=== PATIENT | male | born 1990 | race Two or more races ===

== ENCOUNTER 2018-06-30 16:49 | Emergency (ER) | payer SELFPAY ==
[2018-06-30] MEDS ORDERED: METOCLOPRAMIDE HCL INJ/PF 10 MG/2 ML SDV IV ONE (18:27)
[2018-06-30] MEDS ORDERED: NORMAL SALINE 1000 ML 1,000 ML IV ONE (18:27)
[2018-06-30] MEDS ORDERED: DICYCLOMINE HCL 20 MG TABLET PO ONE (18:27)
--- NOTE | 2018-06-30 18:30 | ER Document Report ---
ED Medical Screen (RME) - General Chief Complaint: Abdominal Pain Stated Complaint: ABDOMINAL PAIN Time Seen by Provider: 06/30/18 18:24 Notes: Patient is a 28-year-old male presents the emergency department for generalized left upper abdominal pain for the last 3 days. Patient states he has also had multiple episodes of diarrhea over the last 3 days and is nauseous. Patient is denying any vomiting, fever, URI symptoms. Patient states over the last couple of months he has had intermittent bright red blood in his stool states more so over the last couple of days. Past medical history: None Medications: None Allergies: None GENERAL: Alert, interacts well. No acute distress. ABDOMEN: Obese soft, Non-distended. Bowel sounds present in all 4 quadrants. Generalized left upper quadrant tenderness, no McBurney's point tenderness, no M urphy sign noted. I have greeted and performed a rapid initial assessment of this patient. A comprehensive ED assessment and evaluation of the patient, analysis of test results and completion of the medical decision making process will be conducted by additional ED providers. TRAVEL OUTSIDE OF THE [place] IN LAST 30 DAYS: No - Related Data Allergies/Adverse Reactions: No Known Allergies Allergy (Verified 06/30/18 18:23) Physical Exam - Vital signs Vitals: Temp Pulse Resp BP Pulse Ox 98.7 F 89 16 136/85 H 97 06/30/18 17:08 06/30/18 17:08 06/30/18 17:08 06/30/18 17:08 06/30/18 17:08 Course - Vital Signs Vital signs: Temp Pulse Resp BP Pulse Ox 98.7 F 89 16 136/85 H 97 06/30/18 17:08 06/30/18 17:08 06/30/18 17:08 06/30/18 17:08 06/30/18 17:08
[2018-06-30] MEDS ORDERED: SUCRALFATE 1 GM TABLET PO ONE (21:15)
[2018-06-30] MEDS ORDERED: HYDROCODONE/ACETAMINOPHEN 5-325 MG TABLET PO ONE (21:15)
[2018-06-30] MEDS ORDERED: PROMETHAZINE HCL 25 MG TABLET PO ONE (21:15)
--- NOTE | 2018-06-30 21:18 | ER Document Report ---
ED GI/ - General Chief Complaint: Abdominal Pain Stated Complaint: ABDOMINAL PAIN Time Seen by Provider: 06/30/18 18:24 Notes: Patient is a 28-year-old male that comes to the emergency department for chief complaint of left upper abdominal pain, he states he has had this for months but it has been worsening recently and has been worse over the past few days. He reports nausea but he has not vomited. He has had a few loose stools. He sta lj that he has had intermittent bloody stools and dark stools but he has not had any over these past 3 days. He denies any fever, flank pain, chest pain, other locations of pain. He takes bkwe-yev-khsvyho medication such as ibuprofen, Tylenol, naproxen for his back, he denies smoking, alcohol, re creational drugs. Denies any surgeries. Denies any medical history otherwise. TRAVEL OUTSIDE OF THE [place] IN LAST 30 DAYS: No - Related Data Allergies/Adverse Reactions: No Known Allergies Allergy (Verified 06/30/18 18:23) Past Medical History - General Information source: Patient - Social History Smoking Status: Current Some Day Smoker Chew tobacco use (# tins/day): No Frequency of alcohol use: Rare Drug Abuse: Marijuana Lives with: Family Family History: Reviewed & Not Pertinent Patient has suicidal ideation: No Patient has homicidal ideation: No - Medical History Medical History: Negative Renal/ Medical History: Denies: Hx Peritoneal Dialysis Surgical Hx: Negative - Immunizations Immunizations up to date: Yes Hx Diphtheria, Pertussis, Tetanus Vaccination: Yes Review of Systems - Review of Systems Constitutional: No symptoms reported EENT: No symptoms reported Cardiovascular: No symptoms reported Respiratory: No symptoms reported Gastrointestinal: See HPI Genitourinary: No symptoms reported Male Genitourinary: No symptoms reported Musculoskeletal: No symptoms reported Skin: No symptoms reported Hematologic/Lymphatic: No symptoms reported Neurological/Psychological: No symptoms reported Physical Exam - Vital signs Vitals: Temp Pulse Resp BP Pulse Ox 98.7 F 89 16 136/85 H 97 06/30/18 17:08 06/30/18 17:08 06/30/18 17:08 06/30/18 17:08 06/30/18 17:08 - Notes Notes: GENERAL: Alert, interacts well. No acute distress. HEAD: Normocephalic, atraumatic. EYES: Pupils equal, round, and reactive to light. Extraocular movements intact. ENT: Oral mucosa moist, tongue midline. Oropharynx unremarkable. Airway patent. Nares patent, no nasal septal hematoma, TM's intact. NECK: Full range of motion. Supple. Trachea midline. LUNGS: Clear to auscultation bilaterally, no wheezes, rales, or rhonchi. No respiratory distress. HEART: Regular rate and rhythm. No murmur ABDOMEN: Tenderness in the left upper quadrant which is reproducible, mild tenderness in the epigastric area, right upper quadrant, lower abdomen all unremarkable. Unremarkable bowel sounds. GENITOURINARY: Deferred EXTREMITIES: Moves all 4 extremities spontaneously. No edema, normal radial and dorsalis pedis pulses bilaterally. No cyanosis. BACK: no cervical, thoracic, lumbar midline tenderness. No saddle anesthesia, normal distal neurovascular exam. NEUROLOGICAL: Alert and oriented x3. Normal speech. [cranial nerves II through XII grossly intact]. PSYCH: Normal affect, normal mood. SKIN: Warm, dry, normal turgor. No rashes or lesions noted. Course - Re-evaluation Re-evalutation: Patient is well-appearing on exam, he does have left upper quadrant tenderness, I suspect he has gastritis based on his presenting symptoms. He denies any current bloody bowel movements, he does admit to having hemorrhoids. I suspect this was the source of the bleeding. No hemoptysis, no black stools. CBC shows mild leukocytosis with elevation of neutrophils, nonspecific based on patient's examination and vomiting. Chemistry unremarkable. Lipase unremarkable. After [place], Carafate, Phenergan symptoms completely resolved, patient fell asleep. Upon awaking he tolerated p.o. without any difficulty. He states he feels much better. Discussed treatment for suspected gastritis, expectations, follow-up, and return precautions. Patient states satisfaction and agreement. Stable at time of discharge. - Vital Signs Vital signs: Temp Pulse Resp BP Pulse Ox 97.8 F 73 16 129/85 H 98 06/30/18 23:54 06/30/18 23:54 06/30/18 23:54 06/30/18 23:54 06/30/18 23:54 - Laboratory Result Diagrams: 06/30/18 22:27 06/30/18 22:27 Laboratory results interpreted by me: 06/30/18 22:27 WBC 14.5 H RBC 5.69 H MCV 75 L MCH 24.4 L RDW 14.9 H Absolute Neutrophils 10.9 H Discharge - Discharge Clinical Impression: Left upper quadrant pain Condition: Stable Disposition: HOME, SELF-CARE Additional Instructions: Your symptoms and examination indicate gastritis/esophagitis (inflammation of your upper gastrointestinal tract). Take Phenergan for nausea, take Carafate and Pepcid as prescribed to help treat this, you can take additional Rolaids, Tums, Maalox, etc. if needed. You can take Tylenol for pain. Avoid NSAIDs, alcohol, smoking, caffeine, spicy food. Start with clear fluids, progress to bland diet. Follow-up with primary care for additional evaluation and treatment including possible H. pylori testing. Return if you worsen including uncontrolled vomiting, vomiting blood, black stools, severe pain, fever for 100.4 or greater, or any other concerning or worsening symptoms. Prescriptions: Famotidine [Pepcid 20 mg Tablet] 20 mg PO BID #20 tablet Promethazine HCl [Phenergan 25 mg Tablet] 25 mg PO Q6H PRN #20 tablet PRN Reason: Sucralfate [Carafate 1 gm Tablet] 1 gm PO QID #20 tablet Forms: Return to Work
[2018-06-30 22:39] LABS: ABSOLUTE BASOPHILS # (AUTO) 0.1 10^3/uL (0.0-0.2); ABSOLUTE EOSINOPHILS # (AUTO) 0.3 10^3/uL (0.0-0.6); ABSOLUTE LYMPHOCYTES (AUTO) 2.6 10^3/uL (0.5-4.7); ABSOLUTE MONOCYTES (AUTO) 0.5 10^3/uL (0.1-1.4); ABSOLUTE NEUT (AUTO) 10.9 10^3/uL (1.7-8.2); BASOPHILS % (AUTO) 0.8 % (0-2); EOSINOPHILS % (AUTO) 2.2 % (0-6); HEMATOCRIT 42.8 % (37.9-51.0); HEMOGLOBIN 13.9 g/dL (13.5-17.0); LYMPHOCYTES % (AUTO) 18.2 % (13-45); MEAN CORPUSCULAR HEMOGLOBIN 24.4 pg (27.0-33.4); MEAN CORPUSCULAR HGB CONC 32.4 g/dL (32.0-36.0); MEAN CORPUSCULAR VOLUME 75 fl (80-97); MONOCYTES % (AUTO) 3.7 % (3-13); PLATELET COUNT 203 10^3/uL (150-450); RED BLOOD COUNT 5.69 10^6/uL (4.35-5.55); RED CELL DISTRIBUTION WIDTH 14.9 % (11.5-14.0); SEGMENTED NEUTROPHILS % (AUTO) 75.1 % (42-78); TOTAL CELLS COUNTED % (AUTO) 100 %; WHITE BLOOD COUNT 14.5 10^3/uL (4.0-10.5)
[2018-06-30 22:46] LABS: ALANINE AMINOTRANSFERASE 68 U/L (21-72); ALBUMIN 4.1 g/dL (3.5-5.0); ALKALINE PHOSPHATASE 75 U/L (38-126); ANION GAP 7 (5-19); ASPARTATE AMINO TRANSFERASE 35 U/L (17-59); BILIRUBIN,DIRECT 0.1 mg/dL (0.0-0.4); BILIRUBIN,TOTAL 0.4 mg/dL (0.2-1.3); BLOOD UREA NITROGEN 14 mg/dL (7-20); CALCIUM 9.2 mg/dL (8.4-10.2); CARBON DIOXIDE 29 mmol/L (22-30); CHLORIDE 103 mmol/L (98-107); GLUCOSE 92 mg/dL (75-110); LIPASE 57.2 U/L (23-300); POTASSIUM 4.5 mmol/L (3.6-5.0); SODIUM 138.7 mmol/L (137-145); TOTAL PROTEIN 6.9 g/dL (6.3-8.2)
[2018-06-30 23:55] VITALS: BP 129/85
== END 2018-06-30 23:55 | disposition home or self-care (01) ==
LOC: ER 16:49
DX: R10.12 Left upper quadrant pain (principal); R11.0 Nausea; F17.200 Nicotine dependence, unspecified, uncomplicated
CPT/HCPCS: 36415; 80053; 83690; 85025; 99284

== ENCOUNTER 2019-01-18 18:13 | Emergency (ER) | payer OTHER ==
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
[2019-01-18] MEDS ORDERED: KETOROLAC TROMETHAMINE 60 MG/2 ML SDV IM ONE (21:22)
[2019-01-18] MEDS ORDERED: DIPH/PERTUSS(ACELL)/TETANUS VAC/PF 0.5 ML SYR (>=10YO) IM ONE (21:22)
[2019-01-18 21:48] VITALS: BP 125/82
== END 2019-01-18 21:58 | disposition home or self-care (01) ==
LOC: ER 18:13
DX: S80.12XA Contusion of left lower leg, initial encounter (principal); S70.12XA Contusion of left thigh, initial encounter; S80.812A Abrasion, left lower leg, initial encounter; M79.652 Pain in left thigh; V03.99XA Pedestrian with other conveyance injured in collision with car, pick-up truck or van, unspecified whether traffic or nontraffic accident, initial encounter
CPT/HCPCS: 99283; 96372; 90471; 90715; J1885